=== PATIENT | female | born 1980 | race Caucasian/White ===

== ENCOUNTER 2024-02-25 06:25 | Emergency (ER) | payer SELFPAY ==
[~2024-02-25] VITALS: Ht 160 cm; Wt 72.0 kg
[2024-02-25 06:32] VITALS: BP 129/73; PULSE 59; O2SAT 99
[2024-02-25 07:24] VITALS: RESP 26
[2024-02-25 07:45] VITALS: TEMP 98.3
[2024-02-25] MEDS: ACETAMINOPHEN 325MG TABLET PO ONE (07:45)
[2024-02-25] MEDS ORDERED: TOPUD PO (08:40)
== END 2024-02-25 09:19 | disposition home or self-care (01) ==
LOC: ER 06:25
DX: M79.10 Myalgia, unspecified site (principal); Z98.890 Other specified postprocedural states
CPT/HCPCS: 73090; 73560; 99284

== ENCOUNTER 2024-05-21 12:18 | Emergency (ER) | payer OTHER ==
[~2024-05-21] VITALS: Ht 165.1 cm; Wt 72.0 kg
[~2024-05-21 12:18] MED LIST: TOPUD PO
[2024-05-21 12:22] VITALS: O2SAT 99
[2024-05-21] MEDS ORDERED: CETI1TAB MT (13:04)
[2024-05-21] MEDS ORDERED: TOPUD MT (13:04)
[2024-05-21 13:20] VITALS: BP 124/78; PULSE 60; RESP 20; TEMP 98.8
== END 2024-05-21 13:27 | disposition home or self-care (01) ==
LOC: ER 12:18
DX: H69.82 Other specified disorders of Eustachian tube, left ear (principal); Z90.49 Acquired absence of other specified parts of digestive tract; Z98.890 Other specified postprocedural states; Z88.8 Allergy status to other drugs, medicaments and biological substances
CPT/HCPCS: 99282

== ENCOUNTER 2024-05-23 13:14 | Emergency (ER) | payer OTHER ==
[~2024-05-23] VITALS: Ht 160 cm; Wt 77.0 kg
[~2024-05-23 13:14] MED LIST changes: +CETI1TAB MT; +TOPUD MT
[2024-05-23 13:21] VITALS: O2SAT 98
[2024-05-23] MEDS ORDERED: IBUP-2029 MT (15:54)
[2024-05-23] MEDS ORDERED: BENZ1LOZ73 MT (15:54)
[2024-05-23] MEDS: KETOROLAC 30MG/ML VIAL IM ONE (16:52)
[2024-05-23 17:53] VITALS: BP 125/70; PULSE 62; RESP 16; TEMP 36.78072; O2SAT 98
== END 2024-05-23 18:11 | disposition home or self-care (01) ==
LOC: ER 13:14
DX: J06.9 Acute upper respiratory infection, unspecified (principal); Z90.49 Acquired absence of other specified parts of digestive tract; Z79.899 Other long term (current) drug therapy; Z20.822 Contact with and (suspected) exposure to COVID-19
CPT/HCPCS: 99283; 87426; 87430; 87070; 96372; J1885